=== PATIENT | male | born 1970 ===

== ENCOUNTER 2017-12-17 17:42 | Emergency (ER) | payer OTHER ==
[2017-12-17 18:17] VITALS: BP 137/84; PULSE 76; RESP 20; TEMP 98.7; O2SAT 95
[2017-12-17 18:21] VITALS: BMI 29.2
--- NOTE | 2017-12-17 19:12 | ED PDOC ---
Arrival/HPI - General Chief Complaint: Abnormal Skin Integrity Time Seen by Provider: 12/17/17 19:07 Historian: Patient, Family EM Caveat: Language Barrier (panamanian) - History of Present Illness Narrative History of Present Illness (Text): 12/17/17 19:08 Pt is a 47 yr old male BIB family for injury to the left hand today while working on his vehicle. Pt states that he had a car caliper fall on the left index and middle finger sustaining an angle laceration to the index finger and smaller lacerations to the middle and index finger chin aspect. Pt cannot move the middle finger and there is significant pain. Denies loss of sensation , head injury or any other injury. Does not know when last tetanus was. Time/Duration: Prior to Arrival Symptom Onset: Sudden Symptom Course: Unchanged Quality: Pressure, Tightness Severity Level: 8 Activities at Onset: Light Context: Work Past Medical History - Provider Review Nursing Documentation Reviewed: Yes - Travel History Have you recently traveled outside [place] w/in the past 3 mons?: No - Infectious Disease Hx of Infectious Diseases: None - Psychiatric Hx Substance Use: No - Anesthesia Hx Anesthesia: No Family/Social History - Physician Review Nursing Documentation Reviewed: Yes Family/Social History: Unknown Family HX Smoking Status: Never Smoked Hx Alcohol Use: No Hx Substance Use: No Allergies/Home Meds Allergies/Adverse Reactions: Allergies No Known Allergies Allergy (Verified 12/17/17 18:16) Review of Systems - Review of Systems Systems not reviewed;Unavailable: Language Barrier (panamanian) Constitutional: Normal Eyes: Normal ENT: Normal Respiratory: Normal Cardiovascular: Normal Gastrointestinal: Normal Genitourinary Male: Normal Musculoskeletal: Normal, Joint Swelling, Other (left middle finger immovable) Skin: Normal, Laceration (left hand) Neurological: Normal Endocrine: Normal Hemo/Lymphatic: Normal Psychiatric: Normal Physical Exam Vital Signs Reviewed: Yes Vital Signs Temp Pulse Resp BP Pulse Ox 12/17/17 18:14 98.7 F 76 20 137/84 95 Temperature: Afebrile Blood Pressure: Normal Pulse: Regular Respiratory Rate: Normal Appearance: Positive for: Well-Appearing, Non-Toxic, Uncomfortable Pain Distress: Moderate Mental Status: Positive for: Alert and Oriented X 3 - Systems Exam Head: Present: Atraumatic, Normocephalic Neck: Present: Normal Range of Motion Respiratory/Chest: Present: Clear to Auscultation, Good Air Exchange. No: Respiratory Distress, Accessory Muscle Use Cardiovascular: Present: Regular Rate and Rhythm, Normal S1, S2. No: Murmurs Abdomen: No: Tenderness, Distention, Peritoneal Signs Back: Present: Normal Inspection Upper Extremity: Present: Normal Inspection. No: Cyanosis, Edema Lower Extremity: Present: Normal Inspection. No: Edema Neurological: Present: GCS=15, CN II-XII Intact, Speech Normal Skin: Present: Warm, Dry, Normal Color, Laceration (left index and middle). No : Rashes Psychiatric: Present: Alert, Oriented x 3, Normal Insight, Normal Concentration Medical Decision Making ED Course and Treatment: 12/17/17 19:55 Impression Pt is a 47 yr old male BIB family for injury to the left hand today while working on his vehicle On exam, there is a angular laceration to the dorsal aspect of the left index finger and a 2 small lacerations on the chin aspect of the index and middle digits Plan Ancef 1g STAT Morphine 2 mg STAT Lac tray and irrigation Pt up to date with Tetanus XR for the left hand see procedure note 12/17/17 21:27 hand was dressed; pt tolerated procedure well pt given ibupuprofen 600 mg and keflex 500 mg po q12 x 5 days advised pt to f/u in 7 days for suture removal or sooner if any complications - RAD Interpretation Radiology Orders: 12/17/17 19:13 HAND LEFT 3 VIEWS ROUTINE [RAD] Stat - Medication Orders Current Medication Orders: Discontinued Medications Cefazolin Sodium (Ancef 1gm In Ns) 1 gm in 100 mls @ 100 mls/hr IVPB STAT STA Stop: 12/17/17 20:23 Last Admin: 12/17/17 20:08 Dose: 100 mls/hr eMAR Start Stop Document 12/17/17 20:08 IVON (Rec: 12/17/17 20:09 IVON [id number]) Intravenous Solution Start Date 12/17/17 Start Time 20:09 End Date 12/17/17 End time 20:39 Total Infusion Time 30 Morphine Sulfate (Morphine) 2 mg IM STAT STA Stop: 12/17/17 19:24 Last Admin: 12/17/17 20:25 Dose: 2 mg MAR Pain Assessment Document 12/17/17 20:25 IVON (Rec: 12/17/17 20:25 IVON [id number]) Pain Reassessment Is this a pain reassessment? No IM Administration Charges Document 12/17/17 20:25 IVON (Rec: 12/17/17 20:25 [facility]) Charges for Administration # of IM Administrations 1 - Procedure PROCEDURE NOTE (Text): 12/18/17 01:50 Performed by the emergency provider Location: Left index dorsal side, left index chin side, left middle chin side Length: tissue avulsion of the left index finger, chin lacs approx 1-2 cm x 2 lacerations, left middle digit laceration approx 1 cm Description: wound edges uneven"; no foreign bodies Distal CMS: ~Normal.~ Left middle finger deficits.~ Neurovascularly intact. Anesthesia: Lidocaine 1% digit block to left index and middle digit Preparation: The wound was cleaned with NS and [place]. The area was prepped and draped in the usual sterile fashion.~ Exploration: ~ The wound was explored and no foreign bodies were found; x- rays were done prior to closure Procedure: The wound was closed with 4.0 nylon.~ There was good approximation.~ In total, 11 were used. Post-Procedure: ~Good closure and hemostasis.~ The patient tolerated the procedure well and there were no complications.~ CSM remains intact.~ Post procedure dressing applied. Disposition/Present on Arrival - Present on Arrival Any Indicators Present on Arrival: Yes History of DVT/PE: No History of Uncontrolled Diabetes: No Urinary Catheter: No History of Decub. Ulcer: No History Surgical Site Infection Following: None - Disposition Have Diagnosis and Disposition been Completed?: Yes Diagnosis: Laceration, Injury of joint of finger Disposition: HOME/ ROUTINE Disposition Time: 21:29 Patient Plan: Discharge Condition: STABLE Discharge Instructions (ExitCare): Wound Care (DC), Laceration Repair With Stitches (DC) Additional Instructions: Dylan, thank you for letting us take care of you today. Your provider was MIKE Woodson. You were treated for Left hand lacerations and injury. The emergency medical care you received today was directed at your acute symptoms. If you were prescribed any medication, please fill it and take as directed. It may take several days for your symptoms to resolve. Return to the Emergency Department if your symptoms worsen, do not improve, or if you have any other problems. Please return in 7-10 days to have the sutures removed and the wounds checked* * Please contact your doctor or call one of the physicians/clinics you have been referred to that are listed on the Patient Visit Information form that is included in your discharge packet. Bring any paperwork you were given at discharge with you along with any medications you are taking to your follow up visit. Our treatment cannot replace ongoing medical care by a primary care provider (PCP) outside of the emergency department. Thank you for allowing the [facility] team to be part of your care today. If you had an X-Ray or CT scan: A Radiologist will review the ED reading if any change in treatment is needed we will contact you. Prescriptions: Cephalexin [Keflex] 500 mg PO Q12 5 Days #10 cap Ibuprofen [Motrin Tab] 600 mg PO Q6 PRN 5 Days #20 tab PRN Reason: pain/fever Referrals: PCP,NO [Primary Care Provider] - Follow up with primary Forms: Team-Match (Amharic), WORK NOTE, Team-Match (Belarusian)
[2017-12-17] MEDS ORDERED: Morphine 4 mg/ml ISec IM STA (19:23)
[2017-12-17] MEDS ORDERED: ceFAZolin 1 gm in NS 1 GM/100 ML BAG IVPB STA (19:24)
--- NOTE | 2017-12-18 08:50 | RAD ---
PROCEDURE: Left Hand Radiographs. HISTORY: injury COMPARISON: None. FINDINGS: BONES: Normal. No fracture. JOINTS: Normal. No osteoarthritic changes. SOFT TISSUES: Normal. OTHER FINDINGS: None. IMPRESSION: No evidence of acute displaced fracture nor dislocation. If symptoms persist or occult fracture suspected clinically recommend repeat radiographs in seven- days as most fractures should become radiographically evident in this timeframe .
== END 2017-12-17 21:31 | disposition home or self-care (01) ==
LOC: ED 17:42
DX: S61.211A Laceration without foreign body of left index finger without damage to nail, initial encounter (principal); S61.213A Laceration without foreign body of left middle finger without damage to nail, initial encounter; W22.8XXA Striking against or struck by other objects, initial encounter; Y92.89 Other specified places as the place of occurrence of the external cause
CPT/HCPCS: 12001; 73130; 96365; 96372; 99282; J0690; J2270

== ENCOUNTER 2017-12-28 08:11 | Emergency (ER) | payer OTHER ==
[2017-12-28 08:12] VITALS: BMI 29.2
--- NOTE | 2017-12-28 09:29 | ED PDOC ---
Arrival/HPI - General Chief Complaint: Suture/Staple Removal Time Seen by Provider: 12/28/17 09:21 Historian: Patient - History of Present Illness Narrative History of Present Illness (Text): 12/28/17 09:22 47 y/o male, here for the suture removal from the lt. hand 2nd and 3rd digit s/ p sutured about 11 days ago. Pt. stated that he has no numbness or tingling, no fever or chills, lt. hand been healing well and dry, no night sweat, no rash , no other medical or psychological complaints. Past Medical History - Provider Review Nursing Documentation Reviewed: Yes - Infectious Disease Hx of Infectious Diseases: None - Psychiatric Hx Substance Use: No - Anesthesia Hx Anesthesia: No Family/Social History - Physician Review Nursing Documentation Reviewed: Yes Family/Social History: Unknown Family HX Smoking Status: Never Smoked Hx Alcohol Use: No Hx Substance Use: No Allergies/Home Meds Allergies/Adverse Reactions: Allergies No Known Allergies Allergy (Verified 12/28/17 08:42) Home Medications: Home Meds Medication Instructions Recorded Confirmed No Known Home Med 12/28/17 12/28/17 Review of Systems - Review of Systems Constitutional: absent: Fatigue, Fevers Respiratory: absent: SOB, Cough Cardiovascular: absent: Chest Pain Gastrointestinal: absent: Abdominal Pain, Diarrhea, Nausea, Vomiting Skin: Laceration (wound healed). absent: Rash, Pruritis, Skin Lesions, Abscess Neurological: absent: Headache, Dizziness Psychiatric: absent: Anxiety, Depression, Suicidal Ideation Physical Exam Vital Signs Reviewed: Yes Vital Signs Temp Pulse Resp BP Pulse Ox 12/28/17 08:39 97.8 F 64 17 134/77 95 Temperature: Afebrile Blood Pressure: Normal Pulse: Regular Respiratory Rate: Normal Appearance: Positive for: Well-Appearing, Non-Toxic, Comfortable Pain Distress: None Mental Status: Positive for: Alert and Oriented X 3 - Systems Exam Head: Present: Atraumatic, Normocephalic Pupils: Present: PERRL Extroacular Muscles: Present: EOMI Conjunctiva: Present: Normal Neck: Present: Normal Range of Motion Respiratory/Chest: Present: Clear to Auscultation, Good Air Exchange. No: Respiratory Distress, Accessory Muscle Use Cardiovascular: Present: Regular Rate and Rhythm, Normal S1, S2. No: Murmurs Abdomen: No: Tenderness, Distention, Peritoneal Signs Back: Present: Normal Inspection Upper Extremity: Present: Normal Inspection, Other (Lt. hand 2nd and 3rd digit visible healed dried scab wound with 11 suture wound noted, no streaking or ulcers, FROM without limitation, sensation intact, motor 5/5, +radial pulse, capillary refill< 2 seconds, neurovascular intact. ). No: Cyanosis, Edema Lower Extremity: Present: Normal Inspection. No: Edema Neurological: Present: GCS=15, CN II-XII Intact, Speech Normal Skin: Present: Warm, Dry, Normal Color. No: Rashes Psychiatric: Present: Alert, Oriented x 3, Normal Insight, Normal Concentration Medical Decision Making ED Course and Treatment: 12/28/17 09:32 -11 sutures removed with success, no visible other sutures, wound and scar noted -Discharge home with education on avoid strenuous exercise or activity for 5-7 days, return to the ER for any new or worsening signs or symptoms, follow up with your own pmd and specialist within 2 days. - PA / THERAPY ASSISTANT / Resident Statement MD/DO has reviewed & agrees with the documentation as recorded. Disposition/Present on Arrival - Present on Arrival Any Indicators Present on Arrival: No History of DVT/PE: No History of Uncontrolled Diabetes: No Urinary Catheter: No History of Decub. Ulcer: No History Surgical Site Infection Following: None - Disposition Have Diagnosis and Disposition been Completed?: Yes Diagnosis: Visit for suture removal Disposition: HOME/ ROUTINE Disposition Time: 09:33 Patient Plan: Discharge Condition: GOOD Additional Instructions: -Discharge home with education on avoid strenuous exercise or activity for 5-7 days, return to the ER for any new or worsening signs or symptoms, follow up with your own pmd and specialist within 2 days. Referrals: Igor Ramirez MD [Staff Provider] - [place] up with primary [facility] [place] - Follow up with primary Forms: WORK NOTE
[2017-12-28 09:40] VITALS: BP 132/80; PULSE 77; RESP 18; TEMP 98.6; O2SAT 99
== END 2017-12-28 09:40 | disposition home or self-care (01) ==
LOC: ED 08:11
DX: Z48.02 Encounter for removal of sutures (principal)

== ENCOUNTER 2018-12-23 07:45 | Outpatient (CLI) | payer OTHER | END 2018-12-23 07:46 | disposition home or self-care (01) | LOC: LAB 07:45 ==